=== PATIENT | male | born 1985 | race Hispanic/Latino ===

== ENCOUNTER 2022-02-22 09:18 | Emergency (ER) | payer SELFPAY ==
[2022-02-22] MEDS ORDERED: Lidocaine 1% PF 5 ML VIAL ONE (10:00)
== END 2022-02-22 11:34 | disposition home or self-care (01) ==
LOC: ERS 09:18
DX: S51.811A Laceration without foreign body of right forearm, initial encounter (principal); W45.8XXA Other foreign body or object entering through skin, initial encounter
CPT/HCPCS: 12002